=== PATIENT | female | born 1940 | race Caucasian/White ===

== ENCOUNTER 2016-07-13 10:44 | Emergency (ER) | payer MEDICARE ==
[~2016-07-13] VITALS: Ht 154.9 cm; Wt 100.0 kg
[~2016-07-13 10:44] MED LIST: ALLO100T PO; ASPI81TA82 PO; ATOR40TA PO; CALC500T21 PO; FURO1TAB93 PO; KRIL300C3 PO; LOSA100T PO; MELO15 PO; MULT1TAB PO; OMEP20TA PO
[2016-07-13 10:46] VITALS: BP 181/94; PULSE 85; RESP 14; TEMP 98.1; O2SAT 99
[2016-07-13] MEDS ORDERED: FURO1TAB60 PO (10:54)
[2016-07-13] MEDS ORDERED: CENTTAB PO (10:54)
[2016-07-13] MEDS ORDERED: ASPI81CH37 CHEW (10:54)
[2016-07-13] MEDS ORDERED: OMEP20TA PO (10:54)
[2016-07-13] MEDS ORDERED: ATOR1TAB18 PO (10:54)
[2016-07-13] MEDS ORDERED: LOSA100T PO (10:54)
--- NOTE | 2016-07-13 11:29 | PD ---
HPI Chief Complaint: Foreign Body Time Seen by Provider: 11:16 Travel History International Travel<30 days: No Contact w/Intl Traveler<30days: No Traveled to known affect area: No History of Present Illness HPI 75 year old female presents to the emergency department for evaluation of feeling like she has a pill stuck in her throat. Patient states that 2 AM, she woke up and took 4 pills at once with a straw. She states she does not typically do this. She states that she felt like her pill stuck in her throat. She states this feeling resolved. 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 She also felt like this became stuck. She drank water and eat applesauce to help it go down. She states that now she has a feeling of a sore throat. She denies any difficulty breathing or swallowing. She is able to keep water down without difficulty. The patient denies any other complaints at this time. 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) Reproductive: No Respiratory: Yes (HX PNEUMONIA) Thyroid Disease: No Tetanus Vaccination: < 5 Years Influenza Vaccination: No Past Surgical History Abdominal Surgery: Yes (APPENDECTOMY AFTER RUPTURE 2006) AICD: No Appendectomy: Yes Cardiac Surgery: No Eye Surgery: Yes (BILATERAL RADIAL KERATOTOMY) Joint Replacement: No Oral Surgery: Yes (TEETH PULLED) Pacemaker: No Thoracic Surgery: Yes (LEFT MASTECTOMY/BREAST RECONSTRUCTION) Other Surgery: Yes Social History Alcohol Use: Yes (4x a week) Tobacco Use: No (quit 1982) Substance Use: No Allergies-Medications (Allergen,Severity, Reaction): Coded Allergies: Phenobarbital (Unverified Allergy, Severe, WELTS, HIVES, ANAPHYLACTIC, ) Reported Meds & Prescriptions Reported Meds & Active Scripts Active Reported Centrum Silver (Multiple Vitamins W/ Minerals) 1 Tab 1 Tab PO DAILY Lasix (Furosemide) 40 Mg Tab 40 Mg PO DAILY Omeprazole 20 Mg Tab 20 Mg PO DAILY Losartan (Losartan Potassium) 100 Mg Tab 100 Mg PO DAILY Atorvastatin (Atorvastatin Calcium) 80 Mg Tab 80 Mg PO HS Aspirin Low Dose (Aspirin) 81 Mg Chew 81 Mg CHEW DAILY Review of Systems Except as stated in HPI: all other systems reviewed are Neg Physical Exam Narrative GENERAL: Well-nourished, well-developed female patient, ambulatory. Afebrile. SKIN: Focused skin assessment warm/dry. HEAD: Normocephalic. Atraumatic. ENT: Mucosa pink and moist. No erythema or exudates. No uvular edema. No uvular , palatal, or tonsillar deviation. Airway patent. Nasal turbinates appear normal without nasal blood, purulent drainage or septal hematoma. EYES: No scleral icterus. No injection or drainage. NECK: Supple, trachea midline. No JVD or lymphadenopathy. CARDIOVASCULAR: Regular rate and rhythm without murmurs, gallops, or rubs. RESPIRATORY: Breath sounds equal bilaterally. No accessory muscle use. Lungs sounds are clear to auscultation. GASTROINTESTINAL: Abdomen soft, non-tender, nondistended. MUSCULOSKELETAL: No cyanosis, or edema. Data Data Last Documented VS Vital Signs Date Time Temp Pulse Resp B/P Pulse Ox O2 Delivery O2 Flow Rate FiO2 07/13/16 10:46 98.1 85 14 181/94 99 MDM Medical Decision Making Medical Screen Exam Complete: Yes Emergency Medical Condition: Yes Medical Record Reviewed: Yes Differential Diagnosis Throat irritation versus foreign body sensation versus pharyngitis Narrative Course 75-year-old female presents to the emergency department for evaluation of feeling like a pill got stuck in her throat. She is swallowing water without difficulty in the emergency department. She denies having anything with small bonesd that that could have gotten stuck. She states the feeling started after swallowing a pill. Patient states that her throat felt irritated. She appears well on exam. Patient is instructed to take 1 pill at a time he drink plenty of water after. She is to follow-up with her orientor. She is instructed to return immediately for any worsening of symptoms. She verbalizes agreement and understanding. Diagnosis Primary Impression: Throat irritation Referrals: Law Tutor call for appointment Patient Instructions: General Instructions, Pharyngitis (ED) Additional Instructions: Take your pills slowly and drink plenty of water after each pill. Follow-up with your orientor. Return to the emergency department for any worsening symptoms. Med/Other Pt SpecificInfo: No Change to Meds Disposition: 01 DISCHARGE HOME Condition: Stable Natasha Hanley July 13, 2016 11:29
[2016-07-13 11:43] VITALS: BP 167/77
== END 2016-07-13 12:00 | disposition home or self-care (01) ==
LOC: NEPC 10:44
DX: J02.9 Acute pharyngitis, unspecified (principal); M10.9 Gout, unspecified
CPT/HCPCS: 99283

== ENCOUNTER 2016-07-15 09:41 | Observation (INO) | payer MEDICARE ==
[2016-07-15] VITALS (7 sets, daily range): BP systolic 148–203; BP diastolic 70–88; PULSE 61–76; RESP 17–20; TEMP 97.9–98.4; O2SAT 90–97
[~2016-07-15 09:41] MED LIST changes: -ALLO100T PO; +ASPI81CH37 CHEW; -ASPI81TA82 PO; +ATOR1TAB18 PO; -ATOR40TA PO; -CALC500T21 PO; +CENTTAB PO; +FURO1TAB60 PO; -FURO1TAB93 PO; -KRIL300C3 PO; -MELO15 PO; -MULT1TAB PO
--- NOTE | 2016-07-15 10:56 | PD ---
HPI Chief Complaint: ENT Complaint Time Seen by Provider: 10:55 Travel History International Travel<30 days: No Contact w/Intl Traveler<30days: No Traveled to known affect area: No History of Present Illness HPI 75-year-old female with PMH of HTN, breast CA (s/p resection 1993), Rodriguez's esophagus presents to the ED for four-day history of closed throat sensation, dysphasia. Patient states this began after taking "a handful of pills" 4 days ago. She states that over the last few days this has progressed to the point where she is drinking water, Gatorade and broth with a soup spoon. On presentation she complains of 5/10 throat discomfort and dull headache. She attributes the headache to dehydration. She denies fever, chills, nausea or vomiting. She states that she was seen in the ED, instructed to follow-up with her warehouse associate driver. She endorses panendoscopy on February [address] Miner. She attempted to contact his office but he is currently out of the country. 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) Reproductive: No Respiratory: Yes (HX PNEUMONIA) Thyroid Disease: No Past Surgical History Abdominal Surgery: Yes (APPENDECTOMY AFTER RUPTURE 2006) AICD: No Appendectomy: Yes Cardiac Surgery: No Eye Surgery: Yes (BILATERAL RADIAL KERATOTOMY) Joint Replacement: No Oral Surgery: Yes (TEETH PULLED) Pacemaker: No Thoracic Surgery: Yes (LEFT MASTECTOMY/BREAST RECONSTRUCTION) Other Surgery: Yes Social History Alcohol Use: Yes (4x a week) Tobacco Use: No (quit 1982) Substance Use: No Allergies-Medications (Allergen,Severity, Reaction): Coded Allergies: Phenobarbital (Unverified Allergy, Severe, WELTS, HIVES, ANAPHYLACTIC, ) Reported Meds & Prescriptions Reported Meds & Active Scripts Active Reported Centrum Silver (Multiple Vitamins W/ Minerals) 1 Tab 1 Tab PO DAILY Lasix (Furosemide) 40 Mg Tab 40 Mg PO DAILY Omeprazole 20 Mg Tab 20 Mg PO DAILY Losartan (Losartan Potassium) 100 Mg Tab 100 Mg PO DAILY Atorvastatin (Atorvastatin Calcium) 80 Mg Tab 80 Mg PO HS Aspirin Low Dose (Aspirin) 81 Mg Chew 81 Mg CHEW DAILY Review of Systems Except as stated in HPI: all other systems reviewed are Neg Physical Exam Narrative GENERAL: Well-nourished, well-developed pleasant, obese white female in no acute distress SKIN: Warm and dry. HEAD: Normocephalic. Atraumatic. EYES: No scleral icterus. No injection or drainage. PERRLA. EOMI. ENT: Pearly carrasco tympanic membranes bilaterally. Nasal mucosa is moist. Oropharynx with mild posterior erythema. No edema or exudate. NECK: Supple, trachea midline. No JVD or lymphadenopathy. No palpable masses. CARDIOVASCULAR: Regular rate and rhythm without murmurs, gallops, or rubs. No carotid bruits. 2+ DP and radial pulses bilaterally. RESPIRATORY: Breath sounds clear and equal bilaterally. No accessory muscle use. GASTROINTESTINAL: Abdomen soft, non-tender, nondistended. + Bowel sounds MUSCULOSKELETAL: No cyanosis, or edema. Patient is ambulatory and moves the extremities spontaneously. BACK: Nontender without obvious deformity. No CVA tenderness. Data Data Last Documented VS Vital Signs Date Time Temp Pulse Resp B/P Pulse Ox O2 Delivery O2 Flow Rate FiO2 07/15/16 12:56 18 07/15/16 12:24 61 203/81 97 Room Air 07/15/16 09:43 98.4 Orders Iv Access Insert/Monitor (07/15/16 11:05) Sodium Chlor 0.9% 1000 Ml Inj (Ns 1000 M (07/15/16 11:15) Barium Swallow (07/15/16 ) Basic Metabolic Panel (Bmp) (07/15/16 11:05) Complete Blood Count With Diff (07/15/16 11:05) Ketorolac Inj (Toradol Inj) (07/15/16 11:45) Admit Order (Ed Use Only) (07/15/16 13:41) Pantoprazole Inj (Protonix Inj) (07/15/16 14:00) Place In Observation (07/15/16 ) Vital Signs (Adult) Q4H (07/15/16 13:38) Activity Oob Ad [place]asta (07/15/16 13:38) Diet Npo (07/15/16 Lunch) Sodium Chlor 0.9% 1000 Ml Inj (Ns 1000 M (07/15/16 14:00) Sodium Chloride 0.9% Flush (Ns Flush) (07/15/16 13:45) Sodium Chloride 0.9% Flush (Ns Flush) (07/15/16 21:00) Acetaminophen (Tylenol) (07/15/16 13:45) Ondansetron Inj (Zofran Inj) (07/15/16 13:45) Magnesium Hydroxide Liq (Milk Of Magnesi (07/15/16 13:45) Basic Metabolic Panel (Bmp) (07/16/16 06:00) Complete Blood Count With Diff (07/16/16 06:00) Scd Bilateral/Knee High MATT.BID (07/15/16 13:38) Naloxone Inj (Narcan Inj) (07/15/16 13:45) Swallow Eval W/ St (07/15/16 13:38) Labs Laboratory Tests Test 07/15/16 11:42 White Blood Count 8.7 TH/MM3 Red Blood Count 4.42 MIL/MM3 Hemoglobin 13.8 GM/DL Hematocrit 40.7 % Mean Corpuscular Volume 92.1 FL Mean Corpuscular Hemoglobin 31.3 PG Mean Corpuscular Hemoglobin 34.0 % Concent Red Cell Distribution Width 13.6 % Platelet Count 153 TH/MM3 Mean Platelet Volume 9.0 FL Neutrophils (%) (Auto) 70.5 % Lymphocytes (%) (Auto) 18.2 % Monocytes (%) (Auto) 9.8 % Eosinophils (%) (Auto) 1.0 % Basophils (%) (Auto) 0.5 % Neutrophils # (Auto) 6.1 TH/MM3 Lymphocytes # (Auto) 1.6 TH/MM3 Monocytes # (Auto) 0.8 TH/MM3 Eosinophils # (Auto) 0.1 TH/MM3 Basophils # (Auto) 0.0 TH/MM3 CBC Comment DIFF FINAL Differential Comment Sodium Level 141 MEQ/L Potassium Level 3.7 MEQ/L Chloride Level 106 MEQ/L Carbon Dioxide Level 28.2 MEQ/L Anion Gap 7 MEQ/L Blood Urea Nitrogen 8 MG/DL Creatinine 0.95 MG/DL Estimat Glomerular Filtration 57 ML/MIN Rate Random Glucose 102 MG/DL Calcium Level 9.3 MG/DL MDM Medical Decision Making Medical Screen Exam Complete: Yes Emergency Medical Condition: Yes Medical Record Reviewed: Yes Differential Diagnosis stricture versus foreign body versus pharyngitis versus metastasis versus other Narrative Course 75-year-old female with PMH of HTN, breast CA (s/p resection 1993), Rodriguez's esophagus presents to the ED for four-day history of closed throat sensation, dysphasia. Patient states this began after taking "a handful of pills" 4 days ago. She states that over the last few days this has progressed to the point where she is drinking water, Gatorade and broth with a soup spoon. She denies fever, chills, nausea or vomiting. She endorses panendoscopy on February [address] Miner. She attempted to contact his office but he is currently out of the country. PCP Yoshi Larsen. Review of the record reveals she was seen 07/13 with the same complaint. Vitals reviewed. Physical exam reveals a nontoxic- appearing obese white female in no acute distress. Oropharynx with mild posterior erythema, uvula midline, airway patent. Neck is supple. No LAD. No palpable masses of the throat. Remaining physical exam is unremarkable. IV was established. Patient was administered 1L NS and 15mg Toradol IV. No concerning abnormalities of the CBC or CMP. Barium swallow: Esophageal stricture ~C2 level, just below the epiglottis per my read. Spoke with Dr. Larsen who recommends admission via [facility] with GI consult. GI consult placed with Dr. Gonsalez. He plans to see the patient this afternoon. Spoke with Dr. Calzada who agrees to accept the patient to the medical service. Please see GI and medicine notes for disposition. Vane Barnard July 15, 2016 10:55
[2016-07-15] MEDS ORDERED: SODIUM CHLOR 0.9% 1000 ML INJ 1,000 ML IV ONE (11:15)
[2016-07-15] MEDS ORDERED: KETOROLAC TROMETHAMINE 30 MG/ML (IVP) VIAL IV PUSH ONE (11:45)
[2016-07-15 12:05] LABS: AUTOMATED NEUTROPHIL # 6.1 TH/MM3 (1.8-7.7); BASOPHIL % 0.5 % (0.0-2.0); EOSINOPHIL # 0.1 TH/MM3 (0-0.4); HEMATOCRIT 40.7 % (35.0-46.0); HEMO FLAGS DIFF FINAL; LYMPH % 18.2 % (9.0-44.0); LYMPHOCYTE # 1.6 TH/MM3 (1.0-4.8); MEAN CELL VOLUME 92.1 FL (80.0-100.0); MEAN CORPUSCULAR HEMOGLOBIN 31.3 PG (27.0-34.0); MONO % 9.8 % (0.0-8.0); NEUT % 70.5 % (16.0-70.0); PLATELET COUNT 153 TH/MM3 (150-450); RED BLOOD COUNT 4.42 MIL/MM3 (4.00-5.30); RED CELL DISTRIBUTION WIDTH 13.6 % (11.6-17.2); WHITE BLOOD COUNT 8.7 TH/MM3 (4.0-11.0)
[2016-07-15 12:19] LABS: BICARBONATE 28.2 MEQ/L (21.0-32.0); POTASSIUM 3.7 MEQ/L (3.5-5.1)
--- NOTE | 2016-07-15 13:43 | RADRPT ---
EXAM DATE/TIME: 07/15/2016 12:50 [place] COMPARISON: No previous studies available for comparison. INDICATIONS : Dysphagia for 4 days; patient states feels like throat is closed after pills got stuck in throat. FLUORO TIME: 1.5 minutes IMAGE COUNT: 112 CONTRAST: 1. Liquid E-Z Paque Barium Sulfate (60% w/v, 41% w.w) MEDICAL HISTORY : Hypertension. Barretts esophagus. SURGICAL HISTORY : None. ENCOUNTER: Initial ACUITY: 4 - 6 days PAIN SCORE: 5/10 LOCATION: Bilateral esophagus. FINDINGS: Air-contrast views of the hypopharynx demonstrates a normal swallowing mechanism. No evidence of aspi ration is seen. However, there appears to be some focal narrowing involving the cervical esophagus ju st below the epiglottis. Also on the lateral view there is a questionable linear filling defect withi n the cervical esophagus. Contrast does flow into the thoracic esophagus without difficulty. The thor acic esophagus is grossly within normal limits. There is no evidence of a fixed stricture or obstruct ion involving the esophagus. There may be some mild smooth narrowing at the GE junction. No evidence of a hiatal hernia is demonstrated. Patient was given a barium tablet. The barium tablet got stuck in the upper cervical esophagus just below the epiglottis. This reproduced the patient's symptoms. Alesha ent vomited the barium tablet back up. On a post image of the neck no residual barium tablet remained . CONCLUSION: 1. There appears to be a focal narrowing or stricture involving the upper cervical esophagus just bel ow the epiglottis. There is also a questionable filling defect within the cervical esophagus at this level. The barium tablet was temporally stuck at this level. Recommend direct visualization of this a jose miguel for further evaluation. 2. Mild smooth narrowing of the distal esophagus at the level of the GE junction. 1. Ravi Johns MD on July 15, 2016 at 13:34 Board Certified Radiologist. This report was verified electronically.
[2016-07-15] MEDS ORDERED: NALOXONE HCL 0.4 MG/ML AMP IV PRN ×2 (13:45→16:15)
[2016-07-15] MEDS ORDERED: MAGNESIUM HYDROXIDE SUSP 30 ML CUP PO PRN (13:45)
[2016-07-15] MEDS ORDERED: ONDANSETRON HCL 4 MG/2 ML VIAL IVP PRN (13:45)
[2016-07-15] MEDS ORDERED: SODIUM CHLORIDE 0.9% FLUSH 10 ML FLUSH IV FLUSH PRN (13:45)
[2016-07-15] MEDS ORDERED: ACETAMINOPHEN 325 MG TAB PO PRN (13:45)
[2016-07-15] MEDS: PANTOPRAZOLE SODIUM 40 MG VIAL IV PUSH SCH (14:42)
[2016-07-15] MEDS: SODIUM CHLOR 0.9% 1000 ML INJ 1,000 ML IV SCH (14:43)
--- NOTE | 2016-07-15 14:51 | HHI.HP ---
[facility] Service [facility] Primary Care Physician Gume (Rickie) MD Chava Admission Diagnosis esophageal stricture Diagnoses: Chief Complaint: Dysphagia, odynophagia Travel History International Travel<30 Days: No Contact w/Intl Traveler <30 Da: No Traveled to Known Affected Are: No History of Present Illness Ms. Cook is a pleasant 75 year old female with a history of HTN, Breast cancer, Rodriguez's esophagus who presented to the ED due to dysphagia and odynophagia. Approximately 4 days ago, after she took a handful of pills, she started experiencing dysphagia, odynophagia. She has been unable to tolerate solids or liquids. She had to use a spoon to drink water, Gatorade, broth etc. She complained of throat pain. Denies any cough, fever, chills. She reports no changes in bowel or bladder habits. Review of Systems Except as stated in HPI: all other systems reviewed are Neg Past Family Social History Past Medical History Breast cancer, arthritis, hypertension. Past Surgical History Appendectomy, left mastectomy, breast reconstruction Reported Medications Centrum Silver (Multiple Vitamins W/ Minerals) 1 Tab 1 Tab PO DAILY Lasix (Furosemide) 40 Mg Tab 40 Mg PO DAILY Omeprazole 20 Mg Tab 20 Mg PO DAILY Losartan (Losartan Potassium) 100 Mg Tab 100 Mg PO DAILY Atorvastatin (Atorvastatin Calcium) 80 Mg Tab 80 Mg PO HS Aspirin Low Dose (Aspirin) 81 Mg Chew 81 Mg CHEW DAILY Allergies: Coded Allergies: Phenobarbital (Unverified Allergy, Severe, WELTS, HIVES, ANAPHYLACTIC, ) Family History No family history of Alzheimer's or Parkinson's. Social History Patient reports drinking about 4 times a week. Denies tobacco use. Quit smoking in 1982. Denies using illicit drugs. Physical Exam Vital Signs Vital Signs Date Time Temp Pulse Resp B/P Pulse Ox O2 Delivery O2 Flow Rate FiO2 07/15/16 14:35 62 18 160/70 96 Room Air 07/15/16 12:56 18 07/15/16 12:24 61 18 203/81 97 Room Air 07/15/16 09:43 98.4 76 20 183/88 96 Room Air Physical Exam GENERAL: This is a well-nourished, well-developed patient, in no apparent distress. SKIN: No rashes, ecchymoses or lesions. Warm and dry. HEAD: Atraumatic. Normocephalic. No temporal or scalp tenderness. EYES: Pupils equal round and reactive. No injection or drainage. ENT: Nose without bleeding, purulent drainage or septal hematoma. Airway patent. Complains of some throat pain. NECK: Trachea midline. No lymphadenopathy. Supple, nontender, no meningeal signs. CARDIOVASCULAR: Regular rate and rhythm without murmurs, gallops, or rubs. No JVD. RESPIRATORY: Clear to auscultation. Breath sounds equal bilaterally. No wheezes , rales, or rhonchi. GASTROINTESTINAL: Abdomen soft, non-tender, nondistended. No guarding. MUSCULOSKELETAL: Extremities without clubbing, cyanosis, or edema. NEUROLOGICAL: Awake and alert. Cranial nerves II through XII intact. No focal neurological deficits. Normal speech. Laboratory Laboratory Tests Test 07/15/16 11:42 White Blood Count 8.7 Red Blood Count 4.42 Hemoglobin 13.8 Hematocrit 40.7 Mean Corpuscular Volume 92.1 Mean Corpuscular Hemoglobin 31.3 Mean Corpuscular Hemoglobin 34.0 Concent Red Cell Distribution Width 13.6 Platelet Count 153 Mean Platelet Volume 9.0 Neutrophils (%) (Auto) 70.5 Lymphocytes (%) (Auto) 18.2 Monocytes (%) (Auto) 9.8 Eosinophils (%) (Auto) 1.0 Basophils (%) (Auto) 0.5 Neutrophils # (Auto) 6.1 Lymphocytes # (Auto) 1.6 Monocytes # (Auto) 0.8 Eosinophils # (Auto) 0.1 Basophils # (Auto) 0.0 CBC Comment DIFF FINAL Differential Comment Sodium Level 141 Potassium Level 3.7 Chloride Level 106 Carbon Dioxide Level 28.2 Anion Gap 7 Blood Urea Nitrogen 8 Creatinine 0.95 Estimat Glomerular Filtration 57 Rate Random Glucose 102 Calcium Level 9.3 Result Diagram: 07/15/16 1142 07/15/16 1142 Imaging Last Impressions Barium Swallow X-Ray 07/15/16 0000 Signed Impressions: Service Date/Time: Friday, July 15, 2016 12:50 - CONCLUSION: 1. There appears to be a focal narrowing or stricture involving the upper cervical esophagus just below the epiglottis. There is also a questionable filling defect within the cervical esophagus at this level. The barium tablet was temporally stuck at this level. Recommend direct visualization of this area for further evaluation. 2. Mild smooth narrowing of the distal esophagus at the level of the GE junction. 1. Ravi Johns MD Assessment and Plan Problem List: (1) Pill esophagitis ICD Code: K20.8 Status: Acute (2) Hypertension ICD Code: I10 Status: Acute (3) Hyperlipidemia ICD Code: E78.5 Status: Acute (4) GERD (gastroesophageal reflux disease) ICD Code: K21.9 Status: Acute Assessment and Plan Ms. Cook is a pleasant 75 year old female with a history of Rodriguez's esophagus who presented to the ED on 07/15/2016 due to dysphagia, odynophagia that started about 4 days ago after she took handful of pills. - Acute Pill esophagitis - GERD - History of Rodriguez's esophagus. - Sudden onset of dysphagia, odynophagia suggests pill esophagitis. - Barium swallow study done. Discussed the case with Dr. Gonsalez (GI) who is going to perform an EGD. - Reviewed barium swallow images. - Start Protonix IV Q24hrs. - NPO for now. Continue NS @100cc/hour. - Hypertension - Hyperlipidemia - Takes Losartan at home. When she is able to swallow, we will continue her home meds. - Will continue Lipitor once patient is able to swallow better. Full code. SCDs. Reid Calzada DO July 15, 2016 14:51
--- NOTE | 2016-07-15 15:22 | PD.CONS ---
GI Consult GI Consult SEE GI CONSULT DICTATED TODAY ALSO [id number]) ASSESSMENT/PLAN: 1. Abnormal barium swallow 2. Esoph stricture 3. Odynophagia/dysphagia 4. Rodriguez's esophagus PLAN: 1. EGD/FB removal/Dil/BX. Risks reviewed It was a pleasure seeing Christine Cook Thank you for this consult. Entered by: Olayinka Farias MD July 15, 2016 15:22
[2016-07-15] MEDS ORDERED: PROPOFOL 200 MG/20 ML AMP IV ONE (16:02)
[2016-07-15] MEDS ORDERED: LIDOCAINE VISCOUS 2% SOLN 15 ML UDC SWISH-SWAL PRN (16:15)
[2016-07-15] MEDS ORDERED: ALUMINUM/MAGNESIUM/SIMETH 30 ML CUP PO PRN (16:15)
[2016-07-15] MEDS ORDERED: FLUMAZENIL 0.5 MG/5 ML VIAL IV PRN ×2 (16:15)
--- NOTE | 2016-07-15 16:42 | GIPROC ---
[facility] [address] [facility]. [facility], [address] EGD PROCEDURE REPORT EXAM DATE: 07/15/2016 PATIENT NAME: Christine Cook MR #: [id number] BIRTHDATE: 1940 ATTENDING: Olayinka Gonsalez MD ORDER #: [id number] OFFICE COORDINATOR RECEPTIONIST: Johnnie Lopez Duff, Pat, and Gilda Lipscomb STATUS: inpatient INDICATIONS: The patient is a 75 yr old female here for an EGD due to Abnormal Barium Swallow, dysphagia, and foreign body removal from esophagus PROCEDURE PERFORMED: EGD w/ fb removal MEDICATIONS: Per Anesthesia and None. (GET) TOPICAL ANESTHETIC: none CONSENT: The patient understands the risks and benefits of the procedure and understands that these risks include, but are not limited to: sedation, allergic reaction, infection, perforation and/or bleeding. Alternative means of evaluation and treatment include, among others: physical exam, x-rays, and/or surgical intervention. The patient elects to proceed with this endoscopic procedure. medical equipment was checked for proper function. Hand hygiene and appropriate measures for infection prevention was taken. After the risks, benefits and alternatives of the procedure were thoroughly explained, Informed consent was verified, confirmed and timeout was successfully executed by the treatment team. The patient was anesthetized with topical anesthesia and the Pentax [id number] endoscope was introduced through the mouth and advanced to the third portion of the duodenum. The gastroscope was then slowly withdrawn and removed. ESOPHAGUS: Foreign body (piece of plastic) was logded in the cervical esophagus-removed with a biopsy forcep. Mucusal trauma was noted where the FB was caught. There was short segment Rodriguez's esophagus found at the gastroesophageal junction. STOMACH: The stomach otherwise appeared normal. DUODENUM: The duodenal mucosa appeared normal in the duodenal bulb, 2nd part duodenum, and 3rd part duodenum. ADVERSE EVENTS: There were no complications. IMPRESSIONS: 1. Foreign body (piece of plastic) was logded in the cervical esophagus-removed with a biopsy forcep. Mucusal trauma was noted where the FB was caught 2. There was short segment Rodriguez's esophagus found at the gastroesophageal junction 3. The stomach otherwise appeared normal 4. Normal duodenal mucosa in the duodenal bulb, 2nd part duodenum, and 3rd part duodenum RECOMMENDATIONS: 1. Admit to hospital 2. Continue PPI 3. NPO except meds--trial of clear liquids in the AM 4. Lidocaine/maalox PATIENT CONDITION: stable DISPOSITION: Inpatient REPEAT EXAM: NONE Olayinka Gonsalez MD eSigned: Olayinka Gonsalez MD 07/15/2016 4:42 PM cc: PATIENT NAME: Christine Cook MR#: [id number]
--- NOTE | 2016-07-15 16:47 | HHI.GIFU ---
GI Follow-up Note Consult Follow-up EGD and FB removal 1. Esoph--Plastic FB lodged in cervical esophagus. Removed. Trauma noted. Rodriguez's noted 2. Stomach--normal 3. Duodenum-normal PLAN: 1. NPO-ok for meds. trial of liquids in am 2. lidocaine/maalox It was a pleasure seeing Christine Cook Thank you for this consult. Entered by: Olayinka Farias MD July 15, 2016 16:47
[2016-07-15] MEDS ORDERED: DO NOT ADM ANY ANTICOAGULANT DRUGS PRN ×2 (17:00)
[2016-07-15] MEDS: SODIUM CHLORIDE 0.9% FLUSH 10 ML FLUSH IV FLUSH SCH (20:21)
[2016-07-16 05:03] VITALS: BP 137/65; PULSE 48; RESP 18; TEMP 98.1; O2SAT 96
[2016-07-16 07:13] VITALS: BP 151/66; PULSE 46; RESP 18; TEMP 98.1; O2SAT 99
[2016-07-16] MEDS ORDERED: ENALAPRILAT 1.25 MG/ML VIAL IV PUSH PRN (07:15)
[2016-07-16 07:52] LABS: AUTOMATED NEUTROPHIL # 5.2 TH/MM3 (1.8-7.7); BASOPHIL % 0.5 % (0.0-2.0); HEMATOCRIT 36.1 % (35.0-46.0); HEMO FLAGS DIFF FINAL; LYMPH % 13.3 % (9.0-44.0); LYMPHOCYTE # 0.9 TH/MM3 (1.0-4.8); MEAN CELL VOLUME 91.9 FL (80.0-100.0); MEAN CORPUSCULAR HEMOGLOBIN 31.3 PG (27.0-34.0); MEAN CORPUSCULAR HGB CONC 34.1 % (32.0-36.0); NEUT % 81.2 % (16.0-70.0); PLATELET COUNT 139 TH/MM3 (150-450); RED BLOOD COUNT 3.93 MIL/MM3 (4.00-5.30); RED CELL DISTRIBUTION WIDTH 13.3 % (11.6-17.2); WHITE BLOOD COUNT 6.5 TH/MM3 (4.0-11.0)
[2016-07-16 08:03] LABS: BICARBONATE 22.9 MEQ/L (21.0-32.0); POTASSIUM 4.1 MEQ/L (3.5-5.1)
--- NOTE | 2016-07-16 09:19 | MB ---
cc: PRISCILLA DEE M.D., SHAHABUDDIN DO PASRICHA, SUNIL P. M.D. DATE OF CONSULTATION 07/15/2016 DATE OF 1940 REASON FOR CONSULTATION I am asked to see the patient at the request of Dr. Calzada's evaluation of esophageal stricture. HISTORY OF THE PRESENT ILLNESS The patient is a pleasant 75-year-old white female who has a history of hypertension and dyslipidemia as well as Rodriguez's esophagus. She called me on Friday stating that at 2 o'clock the morning she took her medications - multivitamin, hypertension medication, cholesterol medication and aspirin. She drank water with a small straw and immediately all of the pills got caught in her throat area. She called me on Friday and said that she had a problems with a sore throat . By the time she called me she said she was able to swallow apple sauce and water, some pain there, but she did okay. We debated about doing an upper endoscopy but she want to hold off. Friday it had worsened but she did not call us and this morning she called the office saying that every time she eats it is very painful and she was getting dehydrated. She did have some Gatorade but there was a lot of pain going down. She has not been eating any solid food. She came to the emergency room and they did a barium swallow which revealed a focal narrowing or stricture involving the upper cervical esophagus just below epiglottis. There appears to be a questionable filling defect within this cervical esophagus area and the could not tell if there was a foreign body there or not. A barium tablet temporary got stuck at that level. There is also a mild smooth narrowing distal to the esophagus. Although this area was unremarkable except for Rodriguez's in February 10, 2016. At this time she still has painful swallowing, but there is no foreign body sensation per se. There is no nausea, vomiting. She does have a history of heartburn that is well controlled on PPI she states. There has been no fever or chills, previous odynophagia, previous dysphagia, melena, hematochezia, diarrhea or constipation. PAST MEDICAL HISTORY 1. Hypertension. 2. Dyslipidemia. 3. She has got Rodriguez's. 4. Breast cancer. 5. Arthritis. 6. Pneumonia. 7. Gastroesophageal reflux disease. PAST SURGICAL HISTORY 1. Left mastectomy. 2. She had breast reconstruction. 3. Appendectomy. 4. She has had upper endoscopies. 5. She had surgery on her eyes. 6. Duarte teeth pulled. MEDICATIONS As an outpatient: 1. Aspirin. 2. Atorvastatin. 3. Losartan. 4. Omeprazole. 5. Lasix. 6. Centrum. ALLERGIES PHENOBARBITAL SOCIAL HISTORY She quit smoking in the early 80s. She does drink alcohol socially. FAMILY HISTORY Noncontributory for this admission. REVIEW OF SYSTEMS CONSTITUTIONAL: No weight loss, fever or chills. CARDIOPULMONARY: No chest pain, palpitations or shortness of breath. GASTROINTESTINAL: Please see above. Otherwise unremarkable 10 point review of systems. PHYSICAL EXAMINATION VITAL SIGNS: Blood pressure is 160/70, pulse 60, respiratory rate 18, temperature is 98.4. GENERAL: She is an overweight white female resting comfortably at this time. She is in no acute distress. HEENT: Her pupils are equal, round and reactive to light. No obvious scleral icterus. Oropharynx had dental caries. No tongue deviation or candidal lesions. NECK: Supple without thyromegaly or lymphadenopathy. There is no subcutaneous emphysema. LUNGS: Clear to auscultation and percussion. HEART: Regular rate and rhythm. No gross murmurs are heard. ABDOMEN: Soft and nondistended. Nontender. No organomegaly or masses. No ascites or hernias. EXTREMITIES: No clubbing, cyanosis or edema. SKIN: Warm and moist. NEUROLOGIC: She is alert and oriented times three. She is moving all four extremities. No gross motor defects. LABORATORY DATA Data base, labs revealed a white blood cell count of 8700, hemoglobin 13.4, hematocrit 40.7, MCV 92.1, platelet count of 153,000. BUN of 8, creatinine 0.93, potassium 3.7, sodium 141. Barium swallow as mentioned above revealed a focal narrowing or stricture involved in the upper esophagus just below the epiglottis. There appears to be a question of filling defect within the cervical esophagus at this area. A barium tablet temporarily got stuck in this area. They recommend a direct visualization of this area. There is mild, smooth narrowing of the distal esophagus at the level of the G junction also. IMPRESSION 1. Abnormal barium swallow- it shows an esophageal stricture as mentioned above. The patient understands this was not seen on a previous upper endoscopy in February of 2016. I suspect this is pill esophagitis from her aspirin and possibly her vitamins. 2. Esophageal strictures as mentioned above. 3. Odynophagia - dysphagia - I am unsure whether there is actually a pill lodged at the stricture. 4. History of Rodriguez's esophagus/gastroesophageal reflux disease. RECOMMENDATIONS 1. The patient has just had barium, however, with a finding on the barium swallow possible foreign body at the area of stricture we need to do an upper endoscopy of that area. She understands this area may not be seen well with the endoscope because it is so close to the epiglottis but I need to evaluate this area and see if this foreign body is there or not. We talked about indications, risks, complications, benefits and alternatives and limitations including risks of bleeding, perforation, infection, arrhythmias and the small possibility of . She understands that I may not be able to pass the endoscope because of the lesion and we talked about stretching this area also (dilatation) however, this has increased risk as far as perforation is concerned. But I need to make sure there is no foreign body there - if there is a pill there it could make this pill esophagitis worse so I do need to check and she is agreeable. We will get this done shortly. 2. Further recommendations after the upper endoscopy is done. MD OPAL Castillo/KK /3:09 PM /9:08 AM REBEKAH
--- NOTE | 2016-07-16 10:26 | HHI.PR ---
Subjective Remarks Follow up dysphagia and odynophagia. Patient states she feels much better, no pain, states throat is a little scratchy. She has not tried fluids yet this morning. Explained to patient she may trial fluids this morning per GI recommendations. Denies any chest pain, sob, or fevers. Objective Vitals Vital Signs Date Time Temp Pulse Resp B/P Pulse Ox O2 Delivery O2 Flow Rate FiO2 07/16/16 07:13 98.1 46 18 151/66 99 07/16/16 05:03 98.1 48 18 137/65 96 07/15/16 23:53 62 18 156/71 93 07/15/16 22:04 96 07/15/16 21:26 98.4 68 18 148/79 90 07/15/16 17:32 97.9 65 17 171/80 97 07/15/16 16:45 64 14 175/74 100 Nasal Cannula 2 07/15/16 16:30 69 14 146/67 99 Nasal Cannula 2 07/15/16 16:12 98.6 73 14 151/75 94 Nasal Cannula 3 07/15/16 14:35 62 18 160/70 96 Room Air 07/15/16 12:56 18 07/15/16 12:24 61 18 203/81 97 Room Air I/O 07/15/16 07/15/16 07/15/16 07/16/16 07/16/16 07/16/16 07:00 15:00 23:00 07:00 15:00 23:00 Intake Total 700 ml Balance 700 ml Intake IV Total 500 ml Other 200 ml Result Diagram: 07/16/16 0640 07/16/16 0640 Imaging Last Impressions Barium Swallow X-Ray 07/15/16 0000 Signed Impressions: Service Date/Time: Friday, July 15, 2016 12:50 - CONCLUSION: 1. There appears to be a focal narrowing or stricture involving the upper cervical esophagus just below the epiglottis. There is also a questionable filling defect within the cervical esophagus at this level. The barium tablet was temporally stuck at this level. Recommend direct visualization of this area for further evaluation. 2. Mild smooth narrowing of the distal esophagus at the level of the GE junction. 1. Ravi Johns MD Objective Remarks GENERAL: well nourished patient in NAD SKIN: Warm and dry. HEAD: Atraumatic. Normocephalic. EYES: Pupils equal and round. No scleral icterus. No injection or drainage. ENT: No nasal bleeding or discharge. Mucous membranes pink and moist. scratchy throat NECK: Trachea midline. No JVD. CARDIOVASCULAR: Regular rate and rhythm. RESPIRATORY: No accessory muscle use. Clear to auscultation. Breath sounds equal bilaterally. GASTROINTESTINAL: Abdomen soft, non-tender, nondistended. Hepatic and splenic margins not palpable. MUSCULOSKELETAL: Extremities without clubbing, cyanosis, or edema. No obvious deformities. NEUROLOGICAL: Awake and alert. Motor grossly within normal limits. Normal speech. PSYCHIATRIC: Appropriate mood and affect; insight and judgment normal. Medications and IVs Current Medications Medications (Trade) Dose Ordered Sig/Chintan Route Start Time Stop Time Status Last Admin Pantoprazole Sodium 40 mg 40 mg Q24H IV PUSH 07/15/16 14:00 07/15/16 14:42 (NS 1000 ml Inj) 1,000 ml @ 100 mls/hr Q10H IV 07/15/16 14:00 07/15/16 14:43 (NS Flush) 2 ml UNSCH PRN IV FLUSH 07/15/16 13:45 (NS Flush) 2 ml BID IV FLUSH 07/15/16 21:00 (Tylenol) 650 mg Q4H PRN PO 07/15/16 13:45 (Zofran Inj) 4 mg Q6H PRN IVP 07/15/16 13:45 (Milk Of Magnesia Liq) 30 ml Q12H PRN PO 07/15/16 13:45 (Narcan Inj) 0.4 mg UNSCH PRN IV 07/15/16 13:45 (Romazicon Inj) 0.2 mg Q1M PRN IV 07/15/16 16:15 07/16/16 16:14 (Narcan Inj) 0.1 mg Q2M PRN IV 07/15/16 16:15 07/16/16 16:14 (Xylocaine 2% Viscous) 5 ml Q4H PRN SWISH-SWAL 07/15/16 16:15 Miscellaneous Information ALL NURSING DEPARTME... UNSCH PRN .XX 07/15/16 17:00 07/16/16 16:59 (Vasotec Inj) 1.25 mg Q6H PRN IV PUSH 07/16/16 07:15 A/P Problem List: (1) Hypertension ICD Code: I10 Status: Acute (2) Hyperlipidemia ICD Code: E78.5 Status: Acute (3) GERD (gastroesophageal reflux disease) ICD Code: K21.9 Status: Acute (4) UNSP FOREIGN BODY IN ESOPHAGUS CAUSING OTH INJURY, SUBS ICD Code: T18.108D Status: Acute Assessment and Plan Ms. Cook is a pleasant 75 year old female with a history of Rodriguez's esophagus who presented to the ED on 07/15/2016 due to dysphagia, odynophagia that started about 4 days ago after she took handful of pills. Acute esophagitis/ Foreign body found in esophagus History of Rodriguez's esophagus. - Barium swallow study done. Discussed the case with Dr. Gonsalez (GI) who is going to perform an EGD. -EGD preformed 07/15/16, foreign body removed from esophagus (pill divider from patient's pill case) - Cont Protonix IV Q24hrs. - Trial clear liquids this am per GI recommendations Hypertension, chronic -Takes Losartan at home. When she is able to swallow, we will continue her home meds. -Enalapril IV PRN Hyperlipidemia, chronic - Will continue Lipitor once patient is able to swallow better. DVT prophylaxis: SCDs. Discharge patient to home Condition on discharge: Stable Full liquid for 48 hours advance as tolerated Ad Sh[place] activity Rx written: none Follow-up with primary care physician in 2-3 days Follow up with GI, Dr. Miner in 1-2 weeks Patient verbalizes understanding of plan Discharge Planning Pending trial of liquids, and follow up GI recommendations Magdalena Lieberman July 16, 2016 10:26
[2016-07-16 11:18] VITALS: BP 141/66; PULSE 62; RESP 18; TEMP 97.9; O2SAT 98
--- NOTE | 2016-07-16 11:20 | HHI.GIFU ---
GI Follow-up Note Consult Follow-up Subjective: Patient laying in bed comfortably. able to take liquids. minimal sore throat. no dysphagia Objective: PHYSICAL EXAMINATION: 151/61-46-18 No fever HEENT: Pupils round and reactive to light; normocephalic; atraumatic; no jaundice. Throat is clear. NECK: Neck is supple, no JVD, no lymphadenopathy. CHEST: Chest is clear to auscultation and percussion. ABDOMEN: Soft, nondistended, nontender; no hepatosplenomegaly; bowel sounds are present in all four quadrants. SKIN: Normal; no rash; no jaundice. 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 Available Data (labs, X- Rays, Procedures) : ASSESSMENT/PLAN: 1. FB in esophagus-resolved 2. Dysphagia-resolved 3. Odynophagia-better PLAN: 1. Full liquid diet--If she tolerates this she can be d/c on this diet for 48 hours--then advance as tolerated 2. Cont PPI 3. Will sign off. ROV in 1-[address] Miner It was a pleasure seeing Christine Cook Thank you for this consult. Entered by: Olayinka Farias MD July 16, 2016 11:20
[2016-07-16] MEDS: SODIUM CHLORIDE 0.9% FLUSH 10 ML FLUSH IV FLUSH SCH (11:24)
[2016-07-16] MEDS: SODIUM CHLOR 0.9% 1000 ML INJ 1,000 ML IV SCH ×2 (11:25)
--- NOTE | 2016-07-16 12:09 | HHI.DCPOC ---
Discharge Care Plan Diagnosis: (1) Esophageal stricture (2) Hyperlipidemia (3) Hypertension (4) Pill esophagitis (5) UNSP FOREIGN BODY IN ESOPHAGUS CAUSING OTH INJURY, SUBS Goals to Promote Your Health * To prevent worsening of your condition and complications * To maintain your health at the optimal level Directions to Meet Your Goals Take your medications as prescribed Follow your dietary instruction Follow activity as directed Keep your appointments as scheduled Take your immunizations and boosters as scheduled If your symptoms worsen call your PCP, if no PCP go to Urgent Care Center or Emergency Room Smoking is Dangerous to Your Health. Avoid second hand smoke Call the 24-hour hour crisis hotline for domestic abuse at Magdalena Lieberman July 16, 2016 12:08
[2016-07-16] MEDS: PANTOPRAZOLE SODIUM 40 MG VIAL IV PUSH SCH (14:16)
== END 2016-07-16 15:24 | disposition home or self-care (01) ==
LOC: NEPD 09:41 → NEDA 13:43 → NEPFCDU 17:24
PROVIDERS: ADMIT Internal Medicine; ATTEND Internal Medicine
DX: K22.2 Esophageal obstruction (principal); K22.70 Barrett's esophagus without dysplasia; K21.0 Gastro-esophageal reflux disease with esophagitis; R12 Heartburn; I10 Essential (primary) hypertension; E78.5 Hyperlipidemia, unspecified; M19.90 Unspecified osteoarthritis, unspecified site; Z85.3 Personal history of malignant neoplasm of breast
CPT/HCPCS: 00740; 43247; 74230; 80048; 85025; 92526; 92610; 96361; 96374; 99285; C9113; G0378; G8996; G8997; G8998; J1885; J7030